=== PATIENT | female | born 1995 | race Caucasian/White ===

== ENCOUNTER 2020-05-19 07:19 | Emergency (ER) | payer OTHER ==
[~2020-05-19] VITALS: Ht 170.2 cm; Wt 110.2 kg
[2020-05-19 10:21] VITALS: BP 140/89
--- NOTE | 2020-05-19 10:24 | NUR ---
PT SENT TO [facility]OBBY TO WAIT FOR AVAILABLE BED.
[2020-05-19] MEDS ORDERED: ACETAMINOPHEN EXTRA STRENGTH 500 MG TAB PO ONE (11:20)
[2020-05-19] MEDS ORDERED: ONDANSETRON 4 MG ODT PO ONE (11:20)
[2020-05-19] MEDS ORDERED: MECLIZINE 25 MG TAB PO ONE (11:20)
[2020-05-19 12:39] LABS: ANION GAP 14.6 (8-16); CARBON DIOXIDE 27.9 mmol/L (21-32); CREATININE 0.6 mg/dL (0.6-1.3); POTASSIUM 4.5 mmol/L (3.5-5.1)
[2020-05-19 13:30] VITALS: BP 139/94
== END 2020-05-19 13:54 | disposition home or self-care (01) ==
LOC: MED 07:19
DX: R42 Dizziness and giddiness (principal); R11.2 Nausea with vomiting, unspecified; R51.9 Headache, unspecified; F12.90 Cannabis use, unspecified, uncomplicated; Z90.49 Acquired absence of other specified parts of digestive tract
CPT/HCPCS: 36415; 80048; 99284